=== PATIENT | female | born 1945 | race Caucasian/White ===

== ENCOUNTER 2017-01-02 21:58 | Emergency (ER) | payer MEDICARE ==
[2017-01-02 23:07] LABS: BASOPHIL 0.6 % (0-2); EOSINOPHIL 1.3 % (0-7); HGB 11.9 g/dl (12.5-16.0); LYMPHOCYTE 26.1 % (15-48); MCH 28.5 pg (25.0-31.0); MCHC 33.1 g/dL (32.0-36.0); MCV 86.3 fL (78.0-100.0); MONOCYTE 6.9 % (0-12); MPV 8.2 fL (6.0-9.5); NEUTROPHIL 65.1 % (41-80); PLT 453 K/uL (150-400); RBC 4.17 M/uL (4.20-5.40); RDW 12.8 % (11.5-14.0); WBC 7.7 K/uL (4.0-10.5)
[2017-01-02 23:21] LABS: ALBUMIN 3.7 g/dL (3.4-4.8); BILIRUBIN - TOTAL 0.2 mg/dL (0.1-1.0); CREATININE 0.9 mg/dL (0.5-1.0); GLOBULIN (CALCULATION) 3.2 g/dL (2.2-4.2); POTASSIUM 3.8 mmol/L (3.5-5.1); TOTAL PROTEIN 6.9 g/dL (6.4-8.3)
[2017-01-03 02:06] LABS: BILIRUBIN NEGATIVE (NEGATIVE); BLOOD NEGATIVE Ery/uL (NEGATIVE); CLARITY CLEAR (CLEAR); COLOR YELLOW (YELLOW); GLUCOSE (U) NORMAL (NORMAL); KETONE (U) NEGATIVE (NEGATIVE); LEUKOCYTES NEGATIVE Leu/uL (NEGATIVE); NITRITE NEGATIVE (NEGATIVE); PROTEIN NEGATIVE (NEGATIVE); SPECIFIC GRAVITY 1.015 (1.001-1.030); pH 7.5 (5.0-9.0)
== END 2017-01-03 03:18 | disposition home or self-care (01) ==
LOC: FER 21:58
PROVIDERS: Emergency Medicine
DX: R11.2 Nausea with vomiting, unspecified (principal); R50.9 Fever, unspecified; R06.02 Shortness of breath; R05 Cough; I10 Essential (primary) hypertension; E78.00 Pure hypercholesterolemia, unspecified; Z79.82 Long term (current) use of aspirin; Z79.899 Other long term (current) drug therapy; Z86.73 Personal history of transient ischemic attack (TIA), and cerebral infarction without residual deficits
CPT/HCPCS: 36415; 71020; 80053; 81003; 82150; 83690; 85025; J1885; J2405

== ENCOUNTER 2021-01-01 09:29 | Emergency (ER) | payer MEDICARE ==
[~2021-01-01 09:29] MED LIST: GABAPENTIN800 MG PO; MEDROL 4MG DOSEP4 MG PO; NARCAN4 MG INH; ONDANSETRON ODT4 MG PO; PERCOCET 10-321 EACH PO
[2021-01-01 10:14] LABS: BASOPHIL 0.3 % (0-2); EOSINOPHIL 1.7 % (0-7); HCT 40.6 % (37.0-47.0); HGB 12.9 g/dl (12.5-16.0); MCH 27.5 pg (25.0-31.0); MCHC 31.8 g/dL (32.0-36.0); MCV 86.6 fL (78.0-100.0); MONOCYTE 8.1 % (0-12); NEUTROPHIL 45.7 % (41-80); NRBC 0; PLT 196 K/uL (150-400); RBC 4.69 M/uL (4.20-5.40); RDW 14.4 % (11.5-14.0); WBC 5.8 K/uL (4.0-10.5)
[2021-01-01 10:37] LABS: ALBUMIN 3.5 g/dL (3.4-5.0); BILIRUBIN - TOTAL 0.3 mg/dL (0.2-1.0); BUN/CREAT RATIO (CALC) 23.5 RATIO; CREATININE 0.85 mg/dL (0.51-0.95); GLOBULIN (CALCULATION) 3.4 g/dL; POTASSIUM 3.7 mmol/L (3.5-5.1); TOTAL PROTEIN 6.9 g/dL (6.4-8.2)
[2021-01-01] MEDS ORDERED: DICYCLOMINE HCL20 MG PO (11:59)
== END 2021-01-01 12:25 | disposition home or self-care (01) ==
LOC: FER 09:29
PROVIDERS: Emergency Medicine
DX: R10.32 Left lower quadrant pain (principal); E11.9 Type 2 diabetes mellitus without complications; I10 Essential (primary) hypertension; Z86.69 Personal history of other diseases of the nervous system and sense organs; Z88.0 Allergy status to penicillin; Z88.5 Allergy status to narcotic agent; Z87.19 Personal history of other diseases of the digestive system
CPT/HCPCS: 36415; 80053; 83690; 85025; 85379; 96372; J0500; J1885; Q9967

== ENCOUNTER 2021-05-03 11:28 | Emergency (ER) | payer MEDICARE ==
[~2021-05-03 11:28] MED LIST changes: +DICYCLOMINE HCL20 MG PO
== END 2021-05-03 14:22 | disposition home or self-care (01) ==
LOC: FER 11:28
DX: S00.03XA Contusion of scalp, initial encounter (principal); S00.83XA Contusion of other part of head, initial encounter; S50.02XA Contusion of left elbow, initial encounter; E11.9 Type 2 diabetes mellitus without complications; Z23 Encounter for immunization; W01.0XXA Fall on same level from slipping, tripping and stumbling without subsequent striking against object, initial encounter; Y92.009 Unspecified place in unspecified non-institutional (private) residence as the place of occurrence of the external cause
CPT/HCPCS: 70450; 70486; 73080; 90471; 90715